=== PATIENT | female | born 1950 | race Caucasian/White ===

== ENCOUNTER 2018-04-10 09:35 | Outpatient (CLI) | payer BC, MEDICARE ==
--- NOTE | 2018-04-10 10:02 | RAD ---
PA AND LATERAL CHEST XRAY: DATE: 04/10/2018. HISTORY: Cough and wheezing for 2 weeks. COMPARISON: 09/08/2012. FINDINGS: Cardiac silhouette and pleural fluid are within normal limits. Linear areas of scarring in the right mid lung zone at the right lung base are again seen including mild blunting of the right lateral cos tophrenic angle, similar to the prior study also probably related to mild pleural and parenchymal sca rring. The lungs are otherwise clear. There has been no interval change when compared to the prior exam. Surgical clips overlie the right upper quadrant. IMPRESSION: 1. No acute cardiopulmonary process. 2. Mild scattered areas of scarring involving the right lung stable from the study in 2012. POS: JOSE
== END 2018-04-10 09:36 | disposition home or self-care (01) ==
LOC: SCSRAD 09:35
PROVIDERS: ATTEND Family Medicine
DX: J40 Bronchitis, not specified as acute or chronic (principal); R06.2 Wheezing
CPT/HCPCS: 71046

== ENCOUNTER 2018-05-04 15:37 | Outpatient (CLI) | payer BC | END 2018-05-04 15:38 | disposition home or self-care (01) | LOC: CTENTCT 15:37 | PROVIDERS: ATTEND Otolaryngology Plastic Surgery within the Head & Neck | DX: J32.9 Chronic sinusitis, unspecified (principal) | CPT/HCPCS: 70486 ==

== ENCOUNTER 2018-05-13 11:44 | Day surgery (SDC) | payer BC ==
[2018-05-12 08:53] VITALS: BMI 28.1
[~2018-05-13 11:44] MED LIST: Dexamethasone 20 MG/5 ML VIAL ONE; Lidocaine 1% PF 5 ML VIAL ONE; Ondansetron PF 4 MG/2 ML Vial ONE; PHENYLEPHRINE-NS 100 MCG/ML 10 ML SYRINGE ONE; PROPOFOL 200 MG/20 ML VIAL ONE; Succinylcholine Chloride 20 MG/ML 10 ml SYRINGE FS ONE
[2018-05-13] MEDS ORDERED: Fentanyl 100 MCG/2 ML VIAL ONE ×4 (14:22→17:06)
[2018-05-13] MEDS ORDERED: Ondansetron PF 4 MG/2 ML Vial ONE (14:22)
[2018-05-13 14:29] LABS: Hemoglobin 12.7 g/dL (12.0-16.0); Platelet Count 413 thou/uL (130-400)
[2018-05-13 14:45] LABS: Anion Gap 13 mmol/L (10-20); BUN (Urea Nitrogen) 16 mg/dL (9.8-20.1); Calc. Creatinine Clearance 100 mL/min (70-130); Calcium 9.7 mg/dL (7.8-10.44); Carbon Dioxide 29 mmol/L (23-31); Chloride 103 mmol/L (98-107); Estimated GFR-MDRD 80; Glucose 90 mg/dL (80-115); Potassium 4.2 mmol/L (3.5-5.1); Sodium 141 mmol/L (136-145)
[2018-05-13] MEDS ORDERED: Oxymetazoline HCl 0.05% ( 15 ML ) ONE ×2 (14:46→15:39)
[2018-05-13] MEDS ORDERED: Bacitracin Zinc Ointment 30 gm TUBE ONE (15:39)
[2018-05-13] MEDS ORDERED: Lidocaine 1% w/Epinephrine 1:100K 20 ML VIAL ONE (15:39)
[2018-05-13] MEDS ORDERED: Hydrocodone-Acetamin 15 ML UDCUP ONE (17:45)
--- NOTE | 2018-05-14 10:01 | OP ---
DATE OF PROCEDURE: 05/13/2018 PREOPERATIVE DIAGNOSES: 1. Chronic rhinosinusitis. 2. Nasal septal deviation. 3. Bilateral inferior turbinate hypertrophy. 4. Nasal obstruction. POSTOPERATIVE DIAGNOSES: 1. Chronic rhinosinusitis. 2. Nasal septal deviation. 3. Bilateral inferior turbinate hypertrophy. 4. Nasal obstruction. PROCEDURES PERFORMED: 1. Bilateral endoscopic sinus surgery, total ethmoidectomies. 2. Bilateral endoscopic sinus surgery, maxillary antrostomies. 3. Bilateral endoscopic sinus surgery, frontal sinusotomies. 4. Bilateral endoscopic sinus surgery, sphenoidotomies. 5. Nasal septoplasty. 6. Bilateral inferior turbinate submucosal resection. ESTIMATED BLOOD LOSS: 50 mL. COMPLICATIONS: None. ANESTHESIA: GETA. PROCEDURE IN DETAIL: Patient was taken to the operating room and placed supine on the table. General endotracheal anesthesia was obtained by the anesthesia staff. Tube was secured in the left lower lip. Patient was then placed in the beach chair position, and Afrin pledgets were placed in the nasal cavity. Injections of 1% lidocaine with 1:100,000 epinephrine were made into the nasal septum as well as the inferior turbinates. Patient was then prepped and draped in standard surgical fashion for nasal surgery. Following this, the Afrin pledgets were removed. A Burke incision was made on the left nasal septum. Submucoperichondrial dissection was performed. The deviated portions of the septum included portions of the cartilage and the bony septum. These isolated areas were removed using 3 cutting rongeurs. There was noted to be a large dorsal and caudal strut, left intact for support of the nose. The mucoperichondrial flaps were then reapproximated using a 4-0 gut stitch. Any straight pieces of cartilage were crushed prior to this and placed between the mucoperichondrial flaps. Following this, the inferior turbinates were then punctured with a submucosal coblation wand, and submucosal coblations were performed of multiple areas of the inferior portion of the anterior inferior turbinate. Please note that the submucosal microdebrider was used to submucosally resect the anterior and inferior portions of the inferior turbinates bilaterally. Following this, the 0-degree scope was advanced into the middle meatus and middle turbinates were identified and were gently medialized. Using the ball-ended probe, the uncinate process was anteriorly fractured bilaterally. Following this, the uncinate process was removed using the 0-degree microdebrider and the upbiting Blakesley forceps bilaterally. Following this, the natural maxillary sinus ostia was identified and was widened using the curved microdebrider and straight Blakesley forceps bilaterally. The maxillary sinuses bilaterally have yellow purulent material, which was irrigated out. Following this, the ethmoidal bulla was identified and was punctured on its medial and inferior aspect bilaterally and was removed using the straight microdebrider. Following this, the grand lamella was identified and was punctured into the posterior ethmoidal cells using the microdebrider. Working from posterior to anterior, the ethmoidal cells were opened in mucosal sparing technique. Following this, the sphenoid sinuses were approached through the previous ethmoidectomies where the attachment of the superior turbinate to the posterior nasal wall was identified. Staying just medial to this and inferior to this, sphenoidotomies were created using a Thrasher tip suction. Following this, the sphenoidotomies were widened medially and inferiorly using the microdebrider. Copious amounts of yellow purulence and inflamed mucosa were encountered. Following this, a 45-degree scope and a curved microdebrider blade were used to further open the frontal recess and frontal sinus ostia bilaterally. Following this, the nasal cavity was irrigated. Mirapex was placed within the middle meatus. Russell splints were placed and secured. The patient tolerated the procedure well. Job ID: [id number]
--- NOTE | 2018-05-15 08:56 | EKG ---
Test Reason : PREOP Blood Pressure : / mmHG Vent. Rate : 084 BPM Atrial Rate : 084 BPM P-R Int : 148 ms QRS Dur : 086 ms QT Int : 388 ms P-R-T Axes : 048 008 046 degrees QTc Int : 458 ms Normal sinus rhythm Possible Inferior infarct , age undetermined Abnormal ECG When compared with ECG of 07-APR-2005 07:18, Borderline criteria for Inferior infarct are now Present Confirmed by DR. Aren ESCAMILLA ([id number]) on 05/15/2018 8:55:35 AM Referred By: ELENO Confirmed By:DR. Aren ESCAMILLA
== END 2018-05-13 18:55 | disposition home or self-care (01) ==
LOC: SDC 11:44
PROVIDERS: ATTEND Otolaryngology Plastic Surgery within the Head & Neck
PROC: 099Q8ZZ Drainage of Right Maxillary Sinus, Via Natural or Artificial Opening Endoscopic (ICD-10-PCS; principal; 2018-05-13)
PROC: 09BV8ZZ Excision of Left Ethmoid Sinus, Via Natural or Artificial Opening Endoscopic (ICD-10-PCS; principal; 2018-05-13)
PROC: 099T8ZZ Drainage of Left Frontal Sinus, Via Natural or Artificial Opening Endoscopic (ICD-10-PCS; principal; 2018-05-13)
PROC: 09BL0ZZ Excision of Nasal Turbinate, Open Approach (ICD-10-PCS; principal; 2018-05-13)
PROC: 099R8ZZ Drainage of Left Maxillary Sinus, Via Natural or Artificial Opening Endoscopic (ICD-10-PCS; principal; 2018-05-13)
PROC: 09BU8ZZ Excision of Right Ethmoid Sinus, Via Natural or Artificial Opening Endoscopic (ICD-10-PCS; principal; 2018-05-13)
PROC: 099W8ZZ Drainage of Right Sphenoid Sinus, Via Natural or Artificial Opening Endoscopic (ICD-10-PCS; principal; 2018-05-13)
PROC: 09SM4ZZ Reposition Nasal Septum, Percutaneous Endoscopic Approach (ICD-10-PCS; principal; 2018-05-13)
PROC: 099S8ZZ Drainage of Right Frontal Sinus, Via Natural or Artificial Opening Endoscopic (ICD-10-PCS; principal; 2018-05-13)
PROC: 099X8ZZ Drainage of Left Sphenoid Sinus, Via Natural or Artificial Opening Endoscopic (ICD-10-PCS; principal; 2018-05-13)
DX: J32.8 Other chronic sinusitis (principal); J34.2 Deviated nasal septum; R09.82 Postnasal drip; J34.3 Hypertrophy of nasal turbinates; J34.89 Other specified disorders of nose and nasal sinuses; F32.9 Major depressive disorder, single episode, unspecified; K21.9 Gastro-esophageal reflux disease without esophagitis; J45.909 Unspecified asthma, uncomplicated; Z79.899 Other long term (current) drug therapy; Z88.5 Allergy status to narcotic agent
CPT/HCPCS: 80048; 85014; 85018; 85049; 93005; 93010; J1100; J2001; J2405; J2704; J3010; J3490

== ENCOUNTER 2018-06-23 10:20 | Emergency (ER) | payer BC, MEDICARE ==
--- NOTE | 2018-06-23 10:57 | RAD ---
TWO VIEWS CHEST: Date: 06-23-18 Provided Clinical History: Cough. FINDINGS: Comparison 04-10-18. Cardiac and mediastinal silhouette is unchanged in appearance. Blunting of the right costophrenic ang le is similar to the prior study. No focal consolidation, pleural fluid, or pneumothorax apparent. IMPRESSION: Stable radiographic appearance of the chest. POS: OFF
[2018-06-23 12:03] LABS: #Basophils 0.1 thou/uL (0.0-0.2); #Lymphocytes 1.2 thou/uL (1.20-3.40); #Monocytes 1.1 thou/uL (0.11-0.59); #Neutrophils 12.5 thou/uL (1.40-6.50); %Basophils 0.4 % (0.0-1.0); %Eosinophils 0.2 % (0.0-10.0); %Lymphocytes 7.9 % (21.0-51.0); %Monocytes 7.2 % (0.0-10.0); %Neutrophils 84.3 % (42.0-75.0); Hemoglobin 10.6 g/dL (12.0-16.0); Mean Corpuscular HGB CONC 32.2 g/dL (32.0-36.0); Mean Corpuscular Hemoglobin 27.5 pg (27.0-31.0); Mean Corpuscular Volume 85.2 fL (78.0-98.0); Mean Platelet Volume 8.1 fL (7.4-10.4); Platelet Count 266 thou/uL (130-400); RBC Distribution Width 12.1 % (11.5-14.5); Red Blood Cell (RBC) Count 3.87 mill/uL (4.20-5.40); White Blood Cell (WBC) Count 14.9 thou/uL (4.8-10.8)
[2018-06-23 12:22] LABS: ALT (SGPT) 38 U/L (8-55); AST (SGOT) 38 U/L (5-34); Albumin 3.6 g/dL (3.4-4.8); Alkaline Phosphatase 138 U/L (40-150); Anion Gap 14 mmol/L (10-20); BUN (Urea Nitrogen) 15 mg/dL (9.8-20.1); Bilirubin, Total 0.8 mg/dL (0.2-1.2); Calc. Creatinine Clearance 0 mL/min (70-130); Calcium 8.5 mg/dL (7.8-10.44); Carbon Dioxide 22 mmol/L (23-31); Chloride 103 mmol/L (98-107); Estimated GFR-MDRD 73; Globulin 2.7 g/dL (2.4-3.5); Glucose 92 mg/dL (80-115); Potassium 3.9 mmol/L (3.5-5.1); Protein, Total 6.3 g/dL (6.0-8.3); Sodium 135 mmol/L (136-145)
[2018-06-23] MEDS ORDERED: Acetaminophen 500 MG TAB ONE (12:42)
[2018-06-23] MEDS ORDERED: methylPREDNISolone Sod Succ/PF 125 MG/2 ML VIAL ONE (12:42)
== END 2018-06-23 13:50 | disposition home or self-care (01) ==
LOC: ERS 10:20
DX: J20.9 Acute bronchitis, unspecified (principal); I10 Essential (primary) hypertension; K21.9 Gastro-esophageal reflux disease without esophagitis; F32.9 Major depressive disorder, single episode, unspecified; Z79.899 Other long term (current) drug therapy
CPT/HCPCS: 71046; 80053; 83880; 84484; 85025; 87804; 93005; 94640; 96374; J2930; J7620

== ENCOUNTER 2018-07-01 08:14 | Outpatient (CLI) | payer BC ==
--- NOTE | 2018-07-01 09:50 | CT ---
FCT thorax with contrast: 07/01/2018 HISTORY: 68-year-old female with chronic productive cough. COMPARISON: 04/06/2005 FINDINGS: The previously demonstrated large consolidation involving almost the entire right upper lobe and righ t middle lobe, is no longer present. There is a very small right pleural effusion which is slightly s maller than the one in 2005. There is a tiny left pleural effusion. There are multifocal irregularly shaped small consolidations in the bilateral lungs, right greater than left. The ones on the left are in the left upper lobe abutting the left major fissure at the mid and lower lung zones. The ones on the right include some abutting the major fissure at the right upper lobe, minor fissure, right middl e lobe, and right lower lobe. The right lower lobe densities are contiguous with nonspecific groundgl ass densities. Nonspecific multiple mildly enlarged mediastinal lymph nodes, similar to prior study. Nonspecific mildly enlarged bilateral hilar lymph nodes, right greater than left. No thoracic aortic aneurysm or dissection. No pericardial effusion. No pneumothorax. IMPRESSION: 1. Nonspecific multifocal scattered bilateral pulmonary densities, right greater than left. Exact tamika ology uncertain. Some of them could represent scar. Others could represent mild subacute inflammatory or infectious nonspecific process. 2. Nonspecific mild mediastinal and hilar lymphadenopathy.
== END 2018-07-01 08:15 | disposition home or self-care (01) ==
LOC: SCSCT 08:14
PROVIDERS: ATTEND Family Medicine
DX: R05 Cough (principal); R59.0 Localized enlarged lymph nodes; J98.4 Other disorders of lung
CPT/HCPCS: 71260

== ENCOUNTER 2018-07-10 05:39 | Day surgery (SDC) | payer BC ==
[2018-07-07 15:02] VITALS: BMI 29.2
[2018-07-10] MEDS ORDERED: Sodium Chloride 0.9% 1,000 ML IV SCH (06:15)
[2018-07-10] MEDS ORDERED: Lidocaine 4% PF 5 ML AMP NEB SCH (06:30)
[2018-07-10] MEDS ORDERED: Dexmedetomidine 200 MCG/2 ML VIAL ONE (07:14)
[2018-07-10] MEDS ORDERED: Midazolam HCl 2 mg/2 ml Vial ONE (07:21)
--- NOTE | 2018-07-10 10:08 | OP ---
DATE OF PROCEDURE: 07/10/2018 PROCEDURE PERFORMED: Fiberoptic bronchoscopy. INDICATION: This is a 68-year-old female with chronic cough and a previous history of prolonged endotracheal intubation due to multilobar pneumonia on the right. Current CT scan shows chronic interstitial changes on the right side. PREOPERATIVE DIAGNOSIS: Cough. POSTOPERATIVE DIAGNOSIS: Cough. ANESTHESIA: General endotracheal. DESCRIPTION OF PROCEDURE: Informed consent was obtained from the patient. She understood the risks involved and agreed to proceed. She was brought to the endoscopy suite and placed on cardiopulmonary monitoring. She was intubated with an 8.5 endotracheal tube by the [employer]. She was placed under general anesthesia. A 2.4 Olympus scope was inserted through an adapter into the endotracheal tube. The patient's donnie was sharp. Her left mainstem bronchus, left upper lobe and left lower lobe were all normal in appearance. The right mainstem bronchus had some mucoid secretions present. The right upper lobe was normal in appearance. The right middle lobe and right lower lobe were normal in appearance. A BAL was done in the right middle lobe with approximately 200 mL of normal saline. The fluid was fairly clear. Transbronchial biopsies were done in various segments of the right lower lobe and sent for pathology. Specimens being sent for bacterial, fungal, and AFB cultures in addition to the pathology from the transbronchial biopsies. The procedure was complicated by some mild hemorrhage from the transbronchial biopsy in the right lower lobe. I did place 2 doses of topical epinephrine in this site and bleeding was self limited. She tolerated the procedure well, was sent to the recovery room in stable condition. She was sent home with a prescription for Tussionex 200 mL 1 teaspoon every 12 hours as needed for cough. Job ID: [id number]
[2018-07-10] MEDS ORDERED: Ondansetron PF 4 MG/2 ML Vial ONE (10:45)
[2018-07-10] MEDS ORDERED: PROPOFOL 200 MG/20 ML VIAL ONE (10:45)
[2018-07-10] MEDS ORDERED: PHENYLEPHRINE-NS 100 MCG/ML 10 ML SYRINGE ONE (10:45)
[2018-07-10] MEDS ORDERED: Succinylcholine Chloride 20 MG/ML 10 ml SYRINGE FS ONE (10:45)
[2018-07-10] MEDS ORDERED: Dexamethasone 20 MG/5 ML VIAL ONE (10:45)
[2018-07-10] MEDS ORDERED: Lidocaine 1% PF 5 ML VIAL ONE (10:45)
[2018-07-14 15:15] LABS: Fungus Stain Final report (.)
== END 2018-07-10 09:50 | disposition home or self-care (01) ==
LOC: SDC 05:39
PROVIDERS: ATTEND Internal Medicine Critical Care Medicine
PROC: 0BDF8ZX Extraction of Right Lower Lung Lobe, Via Natural or Artificial Opening Endoscopic, Diagnostic (ICD-10-PCS; principal; 2018-07-10)
PROC: 0B9D8ZX Drainage of Right Middle Lung Lobe, Via Natural or Artificial Opening Endoscopic, Diagnostic (ICD-10-PCS; principal; 2018-07-10)
DX: R05 Cough (principal); M19.90 Unspecified osteoarthritis, unspecified site; F32.9 Major depressive disorder, single episode, unspecified; M41.9 Scoliosis, unspecified; Z79.1 Long term (current) use of non-steroidal anti-inflammatories (NSAID); Z79.899 Other long term (current) drug therapy
CPT/HCPCS: 76000; 87070; 87077; 87102; 87116; 87205; 87206; 88112; 88305; 94640; J1100; J2001; J2250; J2405; J2704; J7620

== ENCOUNTER 2023-05-13 13:29 | Outpatient (CLI) | payer BC, MEDICARE | END 2023-05-13 13:30 | disposition home or self-care (01) | LOC: RAD 13:29 | PROVIDERS: ATTEND Internal Medicine Critical Care Medicine | DX: R06.00 Dyspnea, unspecified (principal) | CPT/HCPCS: 71046 ==